=== PATIENT | female | born 1985 | race Caucasian/White ===

== ENCOUNTER → 2018-01-12 18:42 | Outpatient (CLI) | payer OTHER, MEDICAID, SELFPAY ==
[2018-01-12 18:58] LABS: Add Manual Diff / Slide Review NO; Basophils Percent Auto 1.1 % (0-2); Eosinophils Percent Auto 3.4 % (2-4); Hemoglobin 13.6 g/dL (12.0-16.0); Lymphocytes Percent Auto 33.5 % (25-40); Mean Corpuscular HGB Conc 34.1 % (30-36); Mean Corpuscular Hemoglobin 31.2 PG (26-34); Mean Corpuscular Volume 91.5 fL (80-100); Monocytes Percent Auto 9.2 % (3-14); Neutrophils Absolute Auto 1800 /uL (3000-5900); Neutrophils Percent Auto 52.8 % (50-75); Platelet Count 174 X10^3/uL (150-400); Red Blood Cell Count 4.37 X10^6/uL (4.0-5.2); Red Cell Distribution Width 12.5 % (11.6-14.8); White Blood Cell Count 3.4 X10^3/uL (4.5-11.0)
[2018-01-12 19:14] LABS: Alanine Aminotransferase 29 IU/L (9-52); Albumin 4.7 g/dL (3.5-5.0); Albumin Globulin Ratio 1.7 (1.0-2.8); Alkaline Phosphatase 49 U/L (38-126); Aspartate Aminotransferase 27 IU/L (14-36); BUN Creatinine Ratio 18.8 (6-22); Bilirubin Total 1.6 mg/dL (0.2-1.3); Blood Urea Nitrogen 15 mg/dL (7-17); Calcium 9.3 mg/dL (8.4-10.2); Carbon Dioxide 27 mmol/L (22-32); Chloride 104 mmol/L (98-107); Estimated Glomerular Filt Rate > 60.0 mL/min (>60); Globulin 2.7 g/dL (1.7-4.1); Glucose 80 mg/dL (70-100); HEMOLYSIS < 15 (0-50); Potassium 3.5 mmol/L (3.4-5.1); Sodium 143 mmol/L (137-145); Total Protein 7.4 g/dL (6.3-8.2)
[2018-01-12 19:15] LABS: Hemoglobin A1C% w Est Avg Glu 4.9 % (4.0-6.0)
[2018-01-12 19:40] LABS: HEMOLYSIS < 15 (0-50); Iron 127 ug/dL (37-170)
[2018-01-12 19:49] LABS: Transferrin 233 mg/dL (206-381)
[2018-01-12 19:50] LABS: Percent Iron Saturation 44 % (15-50); Total Iron Binding Capacity 290 ug/dL (265-497)
[2018-01-12 19:57] LABS: Vitamin D 25 Hydroxy (D3) 41.3 ng/mL (30.0-100.0)
[2018-01-12 20:02] LABS: Vitamin B12 444 pg/mL (239-931)
[2018-01-12 20:12] LABS: TSH w/ Reflex to FT4 0.35 uIU/mL (0.47-4.68)
[2018-01-12 20:38] LABS: Free T4, Direct Thyroxine 1.27 ng/dL (0.78-2.19)
[2018-01-13 09:07] LABS: C-Reactive Protein Quant < 0.5 mg/dL (<1.0)
[2018-01-13 09:21] LABS: Free T3, Triiodothyronine Free 3.33 pg/mL (2.77-5.27)
== END ==
PROVIDERS: PCP Nurse Practitioner Family; Visit Provider Physician Assistant
DX: K14.6 Glossodynia (principal); R53.83 Other fatigue
CPT/HCPCS: 36415; 80053; 82306; 82607; 83036; 83540; 83550; 84439; 84443; 84481; 85025; 86140

== ENCOUNTER → 2018-02-12 14:51 | Outpatient (CLI) | payer OTHER, MEDICAID, SELFPAY ==
--- NOTE | 2018-02-12 | DI.US.S_ITS ---
PROCEDURE: US THYROID INDICATIONS: ABNORMAL TSH TECHNIQUE: Real-time scanning was performed of the thyroid gland, with image documentation. COMPARISON: None. FINDINGS: Right: Thyroid lobe measures 6.0 x 1.6 x 1.8 cm, and is homogeneous in echotexture. Left: Thyroid lobe measures 5.6 x 1.4 x 1.6 cm, and is homogenous in echotexture. Isthmus: 3.1 mm thick. No thyroid nodules identified IMPRESSION: No thyroid nodule. Dictated by: Jax Moeller M.D. on 02/12/2018 at 16:23 Approved by: Jax Moeller M.D. on 02/12/2018 at 16:25
== END ==
PROVIDERS: PCP Nurse Practitioner Family; Visit Provider Nurse Practitioner Family
DX: R79.89 Other specified abnormal findings of blood chemistry (principal)
CPT/HCPCS: 76536